=== PATIENT | female | born 1975 | race Two or more races ===

== ENCOUNTER 2016-09-24 13:37 | Outpatient (CLI) | payer SELFPAY ==
[2016-09-24] MEDS ORDERED: LIDOCAINE 1% INJ-PF (10 MG/ML) 30 ML SDV ONE (13:57)
[2016-09-24] MEDS ORDERED: OXYTOCIN/NORMAL SALINE 0 UNIT/0 ML RTUINJ ONE (13:57)
[2016-09-24] MEDS ORDERED: MISOPROSTOL 0.2 MG TABLET ONE (13:57)
[2016-09-24 14:12] LABS: APPEARANCE,URINE SLIGHTLY-CLOUDY; BILIRUBIN,URINE NEGATIVE (NEGATIVE); GLUCOSE, URINE NEGATIVE (NEGATIVE); KETONES,URINE NEGATIVE (NEGATIVE); LEUKOCYTE ESTERASE,URINE NEGATIVE (NEGATIVE); NITRITE,URINE NEGATIVE (NEGATIVE); PROTEIN,URINE NEGATIVE (NEGATIVE); URINE SPECIFIC GRAVITY 1.008; UROBILINOGEN,URINE NEGATIVE mg/dL (<2.0)
[2016-09-24 14:28] LABS: URINE BARBITURATES SCREEN NEGATIVE; URINE METHADONE SCREEN NEGATIVE; URINE OPIATES LOW NEGATIVE; URINE PHENCYCLIDINE SCREEN NEGATIVE
--- NOTE | 2016-09-24 16:54 | Non Stress Test Report ---
Non Stress Test Datetime Report Generated by CPN: 09/24/2016 16:54 DEMOGRAPHIC EGA NST: 35.1 INDICATION Indication for Study: Ordered by Provider Indication for Study (NST) Other: UC's MONITORING Monitor Explained: Monitor Explained; Test Explained; Patient Verbalized Understanding Time on Monitor: 09/24/2016 14:00 Time off Monitor: 09/24/2016 16:40 NST Duration: 160 NST INTERVENTIONS NST Interventions: None BABY A: [id number] BABY A Movement : Present Contraction Frequency : irregular FHR Baseline : 135 Accelerations : 15X15 Decelerations : None Variability : Moderate 6-25bpm NST Review: Meets Criteria for Reactive NST NST Review and Verified By : H. Kaylen, RN NST Results: Reactive NST REPORT Report Trigger: Send Report
--- NOTE | 2016-09-24 21:49 | L&D Discharge Summary ---
OB Discharge Summary Datetime Report Generated by CPN: 09/24/2016 21:49 DISCHARGE DIAGNOSIS Diagnosis/Symptoms: False Labor Number of Babies in Womb: 1 Parity: 3 DIET/ACTIVITY/RESTRICTIONS Diet: Regular Activity: Normal Activity TEACHING/INSTRUCTIONS/REFERRALS Instructions Understood: Patient Verbalized Understanding Referrals: None Educational Materials- Other: care notes given in finnish DISCHARGE INFORMATION Discharged AMA: No Discharged To: Home Discharge Provider Name: Dr Casas Accompanied By: friend Discharge Method: Ambulatory Condition: Stable FOLLOW UP INFORMATION Follow Up With: Health Department Follow Up On: 1-2 Days Follow Up Phone Number: Health Department - Comments: pt refused pain meds.
--- NOTE | 2016-09-28 22:50 | L&D General Admission ---
General Admit Datetime Report Generated by CPN: 09/28/2016 22:45 INFORMATION Patient Age: 40 (09/24/2016 13:38:QS system process) EDC: 10/28/2016 00:00 (09/24/2016 14:17:Radha Acosta RN) LMP: 01/22/2016 00:00 (09/24/2016 14:17:Radha Acosta RN) : 5 (09/24/2016 14:17:Radha Acosta RN) Para: 3 (09/24/2016 14:17:Radha Acosta RN) Term: 2 (09/24/2016 14:17:Radha Acosta RN) : 1 (09/24/2016 14:17:Radha Acosta RN) Spontaneous Abortions: 1 (09/24/2016 14:17:Radha Acosta RN) Induced Abortions: 0 (09/24/2016 14:17:Radha Acosta RN) Livin (09/24/2016 14:17:Radha Acosta RN) Cesareans: 0 (09/24/2016 14:17:Radha cAosta RN) VBACs: 0 (09/24/2016 14:17:Radha Acosta RN) Ectopic: 0 (09/24/2016 14:17:Radha Acosta RN) Multiple Births: 0 (09/24/2016 14:17:Radha Acosta RN) Baby, Number in Womb: 1 (09/24/2016 14:17:Radha Acosta RN) CARE Primary Irrigator: [facility] (09/24/2016 14:17:Radha Acosta RN) Height (in): 60 (09/24/2016 18:48:QS system process) ALLERGIES Medication Allergy: No (09/24/2016 14:17:Radha Acosta RN) Medication Allergies: No Known Allergies (08/07/2015) (09/24/2016 13:38:QS system process) Latex Allergy: No Latex Allergies (09/24/2016 14:17:Radha Acosta RN) COMMUNICATION Primary Language: Japanese (09/24/2016 14:11:Radha Acosta RN) Medical Tx Preferred Language: Japanese; Castilian (09/24/2016 14:11:Radha Acosta RN) DEMOGRAPHICS Address: [address] [place] [id number] (09/24/2016 14:15:QS system process) Address: [address] [place] [id number] (09/24/2016 13:38:QS system process) Zipcode: [address] (09/24/2016 14:15:QS system process) Zipcode: [address] (09/24/2016 13:38:QS system process) Home (09/24/2016 13:38:QS system process) SSN: [id number] (09/24/2016 13:38:QS system process) Next of Kin Name: BRUCE ALTAMIRANO (09/24/2016 13:38:QS system process) Next of Kin (09/24/2016 13:38:QS system process) Next of Kin Relationship: OR (09/24/2016 13:38:QS system process) Date of : 1975 (09/24/2016 13:38:QS system process) Marital Status: Single (09/24/2016 13:38:QS system process) Sex: Female (09/24/2016 13:38:QS system process) Race: Other (09/24/2016 13:38:QS system process) Ethnicity: or (09/24/2016 13:38:QS system process) Temple: Yarsanism (09/24/2016 13:38:QS system process) DRUG AND ALCOHOL USE Alcohol: No (09/24/2016 14:11:Radha Acosta RN) Cigarettes: Never Smoker. [id number] (09/24/2016 14:11:Radha Acosta RN) Marijuana: No (09/24/2016 14:11:Radha Acosta RN) Cocaine: No (09/24/2016 14:11:Radha Acosta RN) Other Illicit Drugs: No (09/24/2016 14:11:Radha Acosta RN) Feeding Preference: Both (09/24/2016 14:11:Radha Acosta RN) Circumcision: No (09/24/2016 14:11:Radha Acosta RN) Classes Attended: No (09/24/2016 14:11:Radha Acosta RN) Pain Management Plans: Natural (09/24/2016 14:11:Radha Acosta RN) Cultural/Spritual Practice: No (09/24/2016 14:11:Radha Acosta RN) Spir/Cult Dietary Needs: No (09/24/2016 14:11:Radha Acosta RN) LABS Blood Type: A Positive (09/24/2016 14:17:Radha Acosta RN) Antibody Screen: negative (09/24/2016 14:17:Radha Acosta RN) Rho(G) this : Not Applicable (09/24/2016 14:17:Radha Acosta RN) Gonorrhea: Negative (09/24/2016 14:17:Radha Acosta RN) Chlamydia: Negative (09/24/2016 14:17:Radha Acosta RN) RPR/VDRL: Nonreactive (09/24/2016 14:17:Radha Acosta RN) HIV Exposure Test: Negative (09/24/2016 14:17:Radha Acosta RN) Rubella: Immune (09/24/2016 14:17:Radha Acosta RN) Varicella: Non Susceptible (09/24/2016 14:17:Radha Acosta RN) OB/PREVIOUS HISTORY LMP: 01/22/2016 00:00 (09/24/2016 14:17:Radha Acosta RN) History of Previous : No (09/24/2016 14:11:Radha Acosta RN) History of Gestational Diabetes: No (09/24/2016 14:11:Radha Acosta RN) History of PIH: No (09/24/2016 14:11:Radha Acosta RN) History of Incompetent Cervix: No (09/24/2016 14:11:Radha Acosta RN) History of Placenta Previa/Abrup: No (09/24/2016 14:11:Radha Acosta RN) History of Macrosomia: No (09/24/2016 14:11:Radha Acosta RN) History of IUGR: No (09/24/2016 14:11:Radha Acosta RN) History of Hemorrhage: No (09/24/2016 14:11:Radha Acosta RN) History of Loss/Stillborn: No (09/24/2016 14:11:Radha Acosta RN) History of : No (09/24/2016 14:11:Radha Acosta RN) History of D (Rh) Sensitization: No (09/24/2016 14:11:Radha Acosta RN) History Recurrent Loss/Stillborn: No (09/24/2016 14:11:Radha Acosta RN) History Depression/PP Depression: No (09/24/2016 14:11:Radha Acosta RN) History of Uterine Anomaly/TONNY: No (09/24/2016 14:11:Radha Acosta RN) History of Infertility: No (09/24/2016 14:11:Radha Acosta RN) History of ART Treatment: No (09/24/2016 14:11:Radha Acosta RN) History of TONNY: No (09/24/2016 14:11:Radha Acosta RN) Comments Obstetrical History: pt had 3 prior deliveries in [facility], records state PTL and PPROM, pt denies when interviewed. (09/24/2016 14:17:Radha Acosta RN) MEDICAL HISTORY Med Hx Diabetes: No (09/24/2016 14:11:Radha Acosta RN) Med Hx Hypertension: No (09/24/2016 14:11:Radha Acosta RN) Med Hx Heart Disease: No (09/24/2016 14:11:Radha Acosta RN) Med Hx Autoimmune Disorder: No (09/24/2016 14:11:Radha Acosta RN) Med Hx Kidney Disease/UTI: No (09/24/2016 14:11:Radha Acosta RN) Med Hx Neurologic/Epilepsy: No (09/24/2016 14:11:Radha Acosta RN) Med Hx Psychiatric Disorders: No (09/24/2016 14:11:Radha Acosta RN) Med Hx Hepatitis/Liver Disease: No (09/24/2016 14:11:Radha Acosta RN) Med Hx Varicosities/Phlebitis: No (09/24/2016 14:11:Radha Acosta RN) Med Hx Thyroid Dysfunction: No (09/24/2016 14:11:Radha Acosta RN) Med Hx Trauma/Violence: No (09/24/2016 14:11:Radha Acosta RN) Med Hx Blood Transfusion: No (09/24/2016 14:11:Radha Acosta RN) Med Hx Pulmonary (Asthma,TB): No (09/24/2016 14:11:Radha Acosta RN) Med Hx Breast: No (09/24/2016 14:11:Radha Acosta RN) Med Hx AUTOMOBILE INSPECTOR Surgery: No (09/24/2016 14:11:Radha Acosta RN) Med Hx Hospitalization/Surgery: Yes (09/24/2016 14:11:Radha Acosta RN) Med Hx Anesthetic Complications: No (09/24/2016 14:11:Radha Acosta RN) Med Hx Abnormal Pap Smear: No (09/24/2016 14:11:Radha Acosta RN) Other Medical Diseases: No (09/24/2016 14:11:Radha Acosta RN) Med Hx Significant Family Hx: No (09/24/2016 14:11:Radha Acosta RN) Details of Med/Surg Hx: pt states that she has no GDM, but records state that she does. Pt had tubal in 1997 and reversal in 2013 (09/24/2016 14:17:Radha Acosta RN) INFECTIOUS HISTORY Inf Hx Gonorrhea: No (09/24/2016 14:11:Radha Acosta RN) Inf Hx Chlamydia: No (09/24/2016 14:11:Radha Acosta RN) Inf Hx Syphilis: No (09/24/2016 14:11:Radha Acosta RN) Inf Hx HIV/AIDS: No (09/24/2016 14:11:Radha Acosta RN) Inf Hx Human Papilloma Virus: No (09/24/2016 14:11:Radha Acosta RN) Inf Hx Pt/Partner Genital Herpes: No (09/24/2016 14:11:Radha Acosta RN) Inf Hx Tuberculosis/Exposure: No (09/24/2016 14:11:Radha Acosta RN) Inf Hx Hepatitis B,C: No (09/24/2016 14:11:Radha Acosta RN) Inf Hx Rash or Viral Illness: No (09/24/2016 14:11:Radha Acosta RN) GENETIC HISTORY Gen Hx Age >=35 at CRISTIAN: No (09/24/2016 14:11:Radha Acosta RN) Gen Hx Thalassemia: No (09/24/2016 14:11:Radha Acosta RN) Gen Hx Congenital Heart Defect: No (09/24/2016 14:11:Radha Acosta RN) Gen Hx Neural Tube Defect: No (09/24/2016 14:11:Radha Acosta RN) Gen Hx Down's Syndrome: No (09/24/2016 14:11:Radha Acosta RN) Gen Hx Sage-Sachs: No (09/24/2016 14:11:Radha Acosta RN) Gen Hx Tahir: No (09/24/2016 14:11:Radha Acosta RN) Gen Hx Familial Dysautonomia: No (09/24/2016 14:11:Radha Acosta RN) Gen Hx Sickle Cell Disease/Trait: No (09/24/2016 14:11:Radha Acosta RN) Gen Hx Hemophilia/Blood Disorder: No (09/24/2016 14:11:Radha Acosta RN) Gen Hx Muscular Dystrophy: No (09/24/2016 14:11:Radha Acosta RN) Gen Hx Cystic Fibrosis: No (09/24/2016 14:11:Radha Acosta RN) Gen Hx Huntingtons Chorea: No (09/24/2016 14:11:Radha Acosta RN) Gen Hx Mental Retardation/Autism: No (09/24/2016 14:11:aRdha Acosta RN) Gen Hx Tested for Fragile X: No (09/24/2016 14:11:Radha Acosta RN) Gen Hx Other Inher/Chromosomal: No (09/24/2016 14:11:Radha Acosta RN) Gen Hx Maternal Metabolic DO: No (09/24/2016 14:11:Radha Acosta RN) Gen Hx Pt Father or FOB Defect: No (09/24/2016 14:11:Radha Acosta RN) Gen Hx Other Genetic History: No (09/24/2016 14:11:Radha Acosta RN) Gen Hx Drugs/Meds since LMP: No (09/24/2016 14:11:Radha Acosta RN)
--- NOTE | 2016-09-28 22:50 | L&D Discharge Summary ---
OB Discharge Summary Datetime Report Generated by CPN: 09/28/2016 22:45 DISCHARGE DIAGNOSIS Diagnosis/Symptoms: False Labor Gestation: 35.1 Number of Babies in Womb: 1 Parity: 3 DIET/ACTIVITY/RESTRICTIONS Diet: Regular Activity: Normal Activity TEACHING/INSTRUCTIONS/REFERRALS Instructions Understood: Patient Verbalized Understanding Referrals: None Educational Materials- Other: care notes given in turkish DISCHARGE INFORMATION Discharged AMA: No Discharged To: Home Discharge Provider Name: Dr Casas Accompanied By: friend Discharge Method: Ambulatory Condition: Stable FOLLOW UP INFORMATION Follow Up With: Health Department Follow Up On: 1-2 Days Follow Up Phone Number: Health Department - Comments: pt refused pain meds.
--- NOTE | 2016-09-28 22:50 | L&D Current Admission ---
Current Admit Datetime Report Generated by CPN: 09/28/2016 22:45 ADMISSION INFORMATION Chief Complaint: Contractions (09/24/2016 14:17:Radha Dave, RN)
--- NOTE | 2016-09-29 04:49 | L&D Discharge Summary ---
OB Discharge Summary Datetime Report Generated by CPN: 09/29/2016 04:46 DISCHARGE DIAGNOSIS Diagnosis/Symptoms: False Labor Gestation: 35.1 Number of Babies in Womb: 1 Parity: 3 DIET/ACTIVITY/RESTRICTIONS Diet: Regular Activity: Normal Activity TEACHING/INSTRUCTIONS/REFERRALS Instructions Understood: Patient Verbalized Understanding Referrals: None Educational Materials- Other: care notes given in mohawk DISCHARGE INFORMATION Discharged AMA: No Discharged To: Home Discharge Provider Name: Dr Casas Accompanied By: friend Discharge Method: Ambulatory Condition: Stable FOLLOW UP INFORMATION Follow Up With: Health Department Follow Up On: 1-2 Days Follow Up Phone Number: Health Department - Comments: pt refused pain meds.
--- NOTE | 2016-09-29 04:49 | L&D Current Admission ---
Current Admit Datetime Report Generated by CPN: 09/29/2016 04:46 ADMISSION INFORMATION Chief Complaint: Contractions (09/24/2016 14:17:Radha Dave, RN)
--- NOTE | 2016-09-29 04:49 | L&D General Admission ---
General Admit Datetime Report Generated by CPN: 09/29/2016 04:46 INFORMATION Patient Age: 40 (09/24/2016 13:38:QS system process) EDC: 10/28/2016 00:00 (09/24/2016 14:17:Radha Acosta RN) LMP: 01/22/2016 00:00 (09/24/2016 14:17:Radha Acosta RN) : 5 (09/24/2016 14:17:Radha Acosta RN) Para: 3 (09/24/2016 14:17:Radha Acosta RN) Term: 2 (09/24/2016 14:17:Radha Acosta RN) : 1 (09/24/2016 14:17:Radha Acosta RN) Spontaneous Abortions: 1 (09/24/2016 14:17:Radha Acosta RN) Induced Abortions: 0 (09/24/2016 14:17:Radha Acosta RN) Livin (09/24/2016 14:17:Radha Acosta RN) Cesareans: 0 (09/24/2016 14:17:Radha Acosta RN) VBACs: 0 (09/24/2016 14:17:Radha Acosta RN) Ectopic: 0 (09/24/2016 14:17:Radha Acosta RN) Multiple Births: 0 (09/24/2016 14:17:Radha Acosta RN) Baby, Number in Womb: 1 (09/24/2016 14:17:Radha Acosta RN) CARE Primary Varnish Blender: [facility] (09/24/2016 14:17:Radha Acosta RN) Height (in): 60 (09/24/2016 18:48:QS system process) ALLERGIES Medication Allergy: No (09/24/2016 14:17:Radha Acosta RN) Medication Allergies: No Known Allergies (08/07/2015) (09/24/2016 13:38:QS system process) Latex Allergy: No Latex Allergies (09/24/2016 14:17:Radha Acosta RN) COMMUNICATION Primary Language: Tristanian (09/24/2016 14:11:Radha Acosta RN) Medical Tx Preferred Language: Tristanian; Castilian (09/24/2016 14:11:Radha Acosta RN) DEMOGRAPHICS Address: [address] [place] [id number] (09/24/2016 14:15:QS system process) Address: [address] [place] [id number] (09/24/2016 13:38:QS system process) Zipcode: [address] (09/24/2016 14:15:QS system process) Zipcode: [address] (09/24/2016 13:38:QS system process) Home (09/24/2016 13:38:QS system process) SSN: [id number] (09/24/2016 13:38:QS system process) Next of Kin Name: BRUCE ALTAMIRANO (09/24/2016 13:38:QS system process) Next of Kin (09/24/2016 13:38:QS system process) Next of Kin Relationship: OR (09/24/2016 13:38:QS system process) Date of : 1975 (09/24/2016 13:38:QS system process) Marital Status: Single (09/24/2016 13:38:QS system process) Sex: Female (09/24/2016 13:38:QS system process) Race: Other (09/24/2016 13:38:QS system process) Ethnicity: or (09/24/2016 13:38:QS system process) Tenriism: Anabaptist (09/24/2016 13:38:QS system process) DRUG AND ALCOHOL USE Alcohol: No (09/24/2016 14:11:Radha Acosta RN) Cigarettes: Never Smoker. [id number] (09/24/2016 14:11:Radha Acosta RN) Marijuana: No (09/24/2016 14:11:Radha Acosta RN) Cocaine: No (09/24/2016 14:11:Radha Acosta RN) Other Illicit Drugs: No (09/24/2016 14:11:Radha Acosta RN) Feeding Preference: Both (09/24/2016 14:11:Radha Acosta RN) Circumcision: No (09/24/2016 14:11:Radha Acosta RN) Classes Attended: No (09/24/2016 14:11:Radha Acosta RN) Pain Management Plans: Natural (09/24/2016 14:11:Radha Acosta RN) Cultural/Spritual Practice: No (09/24/2016 14:11:Radha Acosta RN) Spir/Cult Dietary Needs: No (09/24/2016 14:11:Radha Acosta RN) LABS Blood Type: A Positive (09/24/2016 14:17:Radha Acosta RN) Antibody Screen: negative (09/24/2016 14:17:Radha Acosta RN) Rho(G) this : Not Applicable (09/24/2016 14:17:Radha Acosta RN) Gonorrhea: Negative (09/24/2016 14:17:Radha Acosta RN) Chlamydia: Negative (09/24/2016 14:17:Radha Acosta RN) RPR/VDRL: Nonreactive (09/24/2016 14:17:Radha Acosta RN) HIV Exposure Test: Negative (09/24/2016 14:17:Radha Acosta RN) Rubella: Immune (09/24/2016 14:17:Radha Acosta RN) Varicella: Non Susceptible (09/24/2016 14:17:Radha Acosta RN) OB/PREVIOUS HISTORY LMP: 01/22/2016 00:00 (09/24/2016 14:17:Radha Acosta RN) History of Previous : No (09/24/2016 14:11:Radha Acosta RN) History of Gestational Diabetes: No (09/24/2016 14:11:Radha Acosta RN) History of PIH: No (09/24/2016 14:11:Radha Acosta RN) History of Incompetent Cervix: No (09/24/2016 14:11:Radha Acosta RN) History of Placenta Previa/Abrup: No (09/24/2016 14:11:Radha Acosta RN) History of Macrosomia: No (09/24/2016 14:11:Radha Acosta RN) History of IUGR: No (09/24/2016 14:11:Radha Acosta RN) History of Hemorrhage: No (09/24/2016 14:11:Radha Acosta RN) History of Loss/Stillborn: No (09/24/2016 14:11:Radha Acosta RN) History of : No (09/24/2016 14:11:Radha Acosta RN) History of D (Rh) Sensitization: No (09/24/2016 14:11:Radha Acosta RN) History Recurrent Loss/Stillborn: No (09/24/2016 14:11:Radha Acosta RN) History Depression/PP Depression: No (09/24/2016 14:11:Radha Acosta RN) History of Uterine Anomaly/TONNY: No (09/24/2016 14:11:Radha Acosta RN) History of Infertility: No (09/24/2016 14:11:Radha Acosta RN) History of ART Treatment: No (09/24/2016 14:11:Radha Acosta RN) History of TONNY: No (09/24/2016 14:11:Radha Acosta RN) Comments Obstetrical History: pt had 3 prior deliveries in [facility], records state PTL and PPROM, pt denies when interviewed. (09/24/2016 14:17:Radha Acosta RN) MEDICAL HISTORY Med Hx Diabetes: No (09/24/2016 14:11:Radha Acosta RN) Med Hx Hypertension: No (09/24/2016 14:11:Radha Acosta RN) Med Hx Heart Disease: No (09/24/2016 14:11:Radha Acosta RN) Med Hx Autoimmune Disorder: No (09/24/2016 14:11:Radha Acosta RN) Med Hx Kidney Disease/UTI: No (09/24/2016 14:11:Radha Acosta RN) Med Hx Neurologic/Epilepsy: No (09/24/2016 14:11:Radha Acosta RN) Med Hx Psychiatric Disorders: No (09/24/2016 14:11:Radha Acosta RN) Med Hx Hepatitis/Liver Disease: No (09/24/2016 14:11:Radha cAosta RN) Med Hx Varicosities/Phlebitis: No (09/24/2016 14:11:Radha Acosta RN) Med Hx Thyroid Dysfunction: No (09/24/2016 14:11:Radha Acosta RN) Med Hx Trauma/Violence: No (09/24/2016 14:11:Radha Acosta RN) Med Hx Blood Transfusion: No (09/24/2016 14:11:Radha Acosta RN) Med Hx Pulmonary (Asthma,TB): No (09/24/2016 14:11:Radha Acosta RN) Med Hx Breast: No (09/24/2016 14:11:Radha Acosta RN) Med Hx FARMWORKER 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 Pt had tubal in 1997 and reversal in 2013 (09/24/2016 14:17:Radha Acosta RN) INFECTIOUS HISTORY Inf Hx Gonorrhea: No (09/24/2016 14:11:Radha Acosta RN) Inf Hx Chlamydia: No (09/24/2016 14:11:Radha Acosta RN) Inf Hx Syphilis: No (09/24/2016 14:11:Radha Acosta RN) Inf Hx HIV/AIDS: No (09/24/2016 14:11:Radha Acosta RN) Inf Hx Human Papilloma Virus: No (09/24/2016 14:11:Radha Acosta RN) Inf Hx Pt/Partner Genital Herpes: No (09/24/2016 14:11:Radha Acosta RN) Inf Hx Tuberculosis/Exposure: No (09/24/2016 14:11:Radha Acosta RN) Inf Hx Hepatitis B,C: No (09/24/2016 14:11:Radha Acosta RN) Inf Hx Rash or Viral Illness: No (09/24/2016 14:11:Radha Acosta RN) GENETIC HISTORY Gen Hx Age >=35 at CRISTIAN: No (09/24/2016 14:11:Radha Acosta RN) Gen Hx Thalassemia: No (09/24/2016 14:11:Radha Acosta RN) Gen Hx Congenital Heart Defect: No (09/24/2016 14:11:Radha Acosta RN) Gen Hx Neural Tube Defect: No (09/24/2016 14:11:Radha Acosta RN) Gen Hx Down's Syndrome: No (09/24/2016 14:11:Radha Acosta RN) Gen Hx Sage-Sachs: No (09/24/2016 14:11:Radha Acosta RN) Gen Hx Tahir: No (09/24/2016 14:11:Radha Acosta RN) Gen Hx Familial Dysautonomia: No (09/24/2016 14:11:Radha Acosta RN) Gen Hx Sickle Cell Disease/Trait: No (09/24/2016 14:11:Radha Acosta RN) Gen Hx Hemophilia/Blood Disorder: No (09/24/2016 14:11:Radha Acosta RN) Gen Hx Muscular Dystrophy: No (09/24/2016 14:11:Radha Acosta RN) Gen Hx Cystic Fibrosis: No (09/24/2016 14:11:Radha Acosta RN) Gen Hx Huntingtons Chorea: No (09/24/2016 14:11:Radha Acosta RN) Gen Hx Mental Retardation/Autism: No (09/24/2016 14:11:Radha Acosta RN) Gen Hx Tested for Fragile X: No (09/24/2016 14:11:Radha Acosta RN) Gen Hx Other Inher/Chromosomal: No (09/24/2016 14:11:Radha Acosta RN) Gen Hx Maternal Metabolic DO: No (09/24/2016 14:11:Radha Acosta RN) Gen Hx Pt Father or FOB Defect: No (09/24/2016 14:11:Radha Acosta RN) Gen Hx Other Genetic History: No (09/24/2016 14:11:Radha Acosta RN) Gen Hx Drugs/Meds since LMP: No (09/24/2016 14:11:Radha Acosta RN)
--- NOTE | 2016-09-29 10:50 | L&D Discharge Summary ---
OB Discharge Summary Datetime Report Generated by CPN: 09/29/2016 10:45 DISCHARGE DIAGNOSIS Diagnosis/Symptoms: False Labor Gestation: 35.1 Number of Babies in Womb: 1 Parity: 3 DIET/ACTIVITY/RESTRICTIONS Diet: Regular Activity: Normal Activity TEACHING/INSTRUCTIONS/REFERRALS Instructions Understood: Patient Verbalized Understanding Referrals: None Educational Materials- Other: care notes given in malay DISCHARGE INFORMATION Discharged AMA: No Discharged To: Home Discharge Provider Name: Dr Casas Accompanied By: friend Discharge Method: Ambulatory Condition: Stable FOLLOW UP INFORMATION Follow Up With: Health Department Follow Up On: 1-2 Days Follow Up Phone Number: Health Department - Comments: pt refused pain meds.
--- NOTE | 2016-09-29 10:50 | L&D General Admission ---
General Admit Datetime Report Generated by CPN: 09/29/2016 10:45 INFORMATION Patient Age: 40 (09/24/2016 13:38:QS system process) EDC: 10/28/2016 00:00 (09/24/2016 14:17:Radha Acosta RN) LMP: 01/22/2016 00:00 (09/24/2016 14:17:Radha Acosta RN) : 5 (09/24/2016 14:17:Radha Acosta RN) Para: 3 (09/24/2016 14:17:Radha Acosta RN) Term: 2 (09/24/2016 14:17:Radha Acosta RN) : 1 (09/24/2016 14:17:Radha Acosta RN) Spontaneous Abortions: 1 (09/24/2016 14:17:Radha Acosta RN) Induced Abortions: 0 (09/24/2016 14:17:Radha Acosta RN) Livin (09/24/2016 14:17:Radha Acosta RN) Cesareans: 0 (09/24/2016 14:17:Radha Acosta RN) VBACs: 0 (09/24/2016 14:17:Radha Acosta RN) Ectopic: 0 (09/24/2016 14:17:Radha Acosta RN) Multiple Births: 0 (09/24/2016 14:17:Radha Acosta RN) Baby, Number in Womb: 1 (09/24/2016 14:17:Radha Acosta RN) CARE Primary Commutator Repairer: [facility] (09/24/2016 14:17:Radha Acosta RN) Height (in): 60 (09/24/2016 18:48:QS system process) ALLERGIES Medication Allergy: No (09/24/2016 14:17:Radha Acosta RN) Medication Allergies: No Known Allergies (08/07/2015) (09/24/2016 13:38:QS system process) Latex Allergy: No Latex Allergies (09/24/2016 14:17:Radha Acosta RN) COMMUNICATION Primary Language: Gibraltarian (09/24/2016 14:11:Radha Acosta RN) Medical Tx Preferred Language: Gibraltarian; Castilian (09/24/2016 14:11:Radha Acosta RN) DEMOGRAPHICS Address: [address] [place] [id number] (09/24/2016 14:15:QS system process) Address: [address] [place] [id number] (09/24/2016 13:38:QS system process) Zipcode: [address] (09/24/2016 14:15:QS system process) Zipcode: [address] (09/24/2016 13:38:QS system process) Home (09/24/2016 13:38:QS system process) SSN: [id number] (09/24/2016 13:38:QS system process) Next of Kin Name: BRUCE ALTAMIRANO (09/24/2016 13:38:QS system process) Next of Kin (09/24/2016 13:38:QS system process) Next of Kin Relationship: OR (09/24/2016 13:38:QS system process) Date of : 1975 (09/24/2016 13:38:QS system process) Marital Status: Single (09/24/2016 13:38:QS system process) Sex: Female (09/24/2016 13:38:QS system process) Race: Other (09/24/2016 13:38:QS system process) Ethnicity: or (09/24/2016 13:38:QS system process) Mandaen: Advent (09/24/2016 13:38:QS system process) DRUG AND ALCOHOL USE Alcohol: No (09/24/2016 14:11:Radha Acosta RN) Cigarettes: Never Smoker. [id number] (09/24/2016 14:11:Radha Acosta RN) Marijuana: No (09/24/2016 14:11:Radha Acosta RN) Cocaine: No (09/24/2016 14:11:Radha Acosta RN) Other Illicit Drugs: No (09/24/2016 14:11:Radha Acosta RN) Feeding Preference: Both (09/24/2016 14:11:Radha Acosta RN) Circumcision: No (09/24/2016 14:11:Radha Acosta RN) Classes Attended: No (09/24/2016 14:11:Radha Acosta RN) Pain Management Plans: Natural (09/24/2016 14:11:Radha Acosta RN) Cultural/Spritual Practice: No (09/24/2016 14:11:Radha Acosta RN) Spir/Cult Dietary Needs: No (09/24/2016 14:11:Radha Acosta RN) LABS Blood Type: A Positive (09/24/2016 14:17:Radha Acosta RN) Antibody Screen: negative (09/24/2016 14:17:Radha Acosta RN) Rho(G) this : Not Applicable (09/24/2016 14:17:Radha Acosta RN) Gonorrhea: Negative (09/24/2016 14:17:Radha Acosta RN) Chlamydia: Negative (09/24/2016 14:17:Radha Acosta RN) RPR/VDRL: Nonreactive (09/24/2016 14:17:Radha Acosta RN) HIV Exposure Test: Negative (09/24/2016 14:17:Radha Acosta RN) Rubella: Immune (09/24/2016 14:17:Radha Acosta RN) Varicella: Non Susceptible (09/24/2016 14:17:Radha Acosta RN) OB/PREVIOUS HISTORY LMP: 01/22/2016 00:00 (09/24/2016 14:17:Radha Acosta RN) History of Previous : No (09/24/2016 14:11:Radha Acosta RN) History of Gestational Diabetes: No (09/24/2016 14:11:Radha Acosta RN) History of PIH: No (09/24/2016 14:11:Radha Acosta RN) History of Incompetent Cervix: No (09/24/2016 14:11:Radha Acosta RN) History of Placenta Previa/Abrup: No (09/24/2016 14:11:Radha Acosta RN) History of Macrosomia: No (09/24/2016 14:11:Radha Acosta RN) History of IUGR: No (09/24/2016 14:11:Radha Acosta RN) History of Hemorrhage: No (09/24/2016 14:11:Radha Acosta RN) History of Loss/Stillborn: No (09/24/2016 14:11:Radha Acosta RN) History of : No (09/24/2016 14:11:Radha Acosta RN) History of D (Rh) Sensitization: No (09/24/2016 14:11:Radha Acosta RN) History Recurrent Loss/Stillborn: No (09/24/2016 14:11:Radha Acosta RN) History Depression/PP Depression: No (09/24/2016 14:11:Radha Acosta RN) History of Uterine Anomaly/TONNY: No (09/24/2016 14:11:Radha Acosta RN) History of Infertility: No (09/24/2016 14:11:Radha Acosta RN) History of ART Treatment: No (09/24/2016 14:11:Radha Acosta RN) History of TONNY: No (09/24/2016 14:11:Radha Acosta RN) Comments Obstetrical History: pt had 3 prior deliveries in [facility], records state PTL and PPROM, pt denies when interviewed. (09/24/2016 14:17:Radha Acosta RN) MEDICAL HISTORY Med Hx Diabetes: No (09/24/2016 14:11:Radha Acosta RN) Med Hx Hypertension: No (09/24/2016 14:11:Radha Acosta RN) Med Hx Heart Disease: No (09/24/2016 14:11:Radha Acosta RN) Med Hx Autoimmune Disorder: No (09/24/2016 14:11:Radha Acosta RN) Med Hx Kidney Disease/UTI: No (09/24/2016 14:11:Radha Acosta RN) Med Hx Neurologic/Epilepsy: No (09/24/2016 14:11:Radha Acosta RN) Med Hx Psychiatric Disorders: No (09/24/2016 14:11:Radha Acosta RN) Med Hx Hepatitis/Liver Disease: No (09/24/2016 14:11:Radha Acosta RN) Med Hx Varicosities/Phlebitis: No (09/24/2016 14:11:Radha Acosta RN) Med Hx Thyroid Dysfunction: No (09/24/2016 14:11:Radha Acosta RN) Med Hx Trauma/Violence: No (09/24/2016 14:11:Radha Acosta RN) Med Hx Blood Transfusion: No (09/24/2016 14:11:Radha Acosta RN) Med Hx Pulmonary (Asthma,TB): No (09/24/2016 14:11:Radha Acosta RN) Med Hx Breast: No (09/24/2016 14:11:Radha Acosta RN) Med Hx LABOR RELATIONS DIRECTOR Surgery: No (09/24/2016 14:11:Radha Acosta RN) Med Hx Hospitalization/Surgery: Yes (09/24/2016 14:11:Radha Acosta RN) Med Hx Anesthetic Complications: No (09/24/2016 14:11:Radha Acosta RN) Med Hx Abnormal Pap Smear: No (09/24/2016 14:11:Radha Acosta RN) Other Medical Diseases: No (09/24/2016 14:11:Radha Acosta RN) Med Hx Significant Family Hx: No (09/24/2016 14:11:Radha Acosta RN) Details of Med/Surg Hx: pt states that she has no GDM, but records state that she does. Pt had tubal in 1997 and reversal in 2013 (09/24/2016 14:17:Radha Acosta RN) INFECTIOUS HISTORY Inf Hx Gonorrhea: No (09/24/2016 14:11:Radha Acosta RN) Inf Hx Chlamydia: No (09/24/2016 14:11:Radha Acosta RN) Inf Hx Syphilis: No (09/24/2016 14:11:Radha Acosta RN) Inf Hx HIV/AIDS: No (09/24/2016 14:11:Radha Acosta RN) Inf Hx Human Papilloma Virus: No (09/24/2016 14:11:Radha Acosta RN) Inf Hx Pt/Partner Genital Herpes: No (09/24/2016 14:11:Radha Acosta RN) Inf Hx Tuberculosis/Exposure: No (09/24/2016 14:11:Radha Acosta RN) Inf Hx Hepatitis B,C: No (09/24/2016 14:11:Radha Acosta RN) Inf Hx Rash or Viral Illness: No (09/24/2016 14:11:Radha Acosta RN) GENETIC HISTORY Gen Hx Age >=35 at CRISTIAN: No (09/24/2016 14:11:Radha Acosta RN) Gen Hx Thalassemia: No (09/24/2016 14:11:Radha Acosta RN) Gen Hx Congenital Heart Defect: No (09/24/2016 14:11:Radha Acosta RN) Gen Hx Neural Tube Defect: No (09/24/2016 14:11:Radha Acosta RN) Gen Hx Down's Syndrome: No (09/24/2016 14:11:Radha Acosta RN) Gen Hx Sage-Sachs: No (09/24/2016 14:11:Radha Acosta RN) Gen Hx Tahir: No (09/24/2016 14:11:Radha Acosta RN) Gen Hx Familial Dysautonomia: No (09/24/2016 14:11:Radha Acosta RN) Gen Hx Sickle Cell Disease/Trait: No (09/24/2016 14:11:Radha Acosta RN) Gen Hx Hemophilia/Blood Disorder: No (09/24/2016 14:11:Radha Acosta RN) Gen Hx Muscular Dystrophy: No (09/24/2016 14:11:Radha Acosta RN) Gen Hx Cystic Fibrosis: No (09/24/2016 14:11:Radha Acosta RN) Gen Hx Huntingtons Chorea: No (09/24/2016 14:11:Radha Acosta RN) Gen Hx Mental Retardation/Autism: No (09/24/2016 14:11:Radha Acosta RN) Gen Hx Tested for Fragile X: No (09/24/2016 14:11:Radha Acosta RN) Gen Hx Other Inher/Chromosomal: No (09/24/2016 14:11:Radha Acosta RN) Gen Hx Maternal Metabolic DO: No (09/24/2016 14:11:Radha Acosta RN) Gen Hx Pt Father or FOB Defect: No (09/24/2016 14:11:Radha Acosta RN) Gen Hx Other Genetic History: No (09/24/2016 14:11:Radha Acosta RN) Gen Hx Drugs/Meds since LMP: No (09/24/2016 14:11:Radha Acosta RN)
--- NOTE | 2016-09-29 10:50 | L&D Current Admission ---
Current Admit Datetime Report Generated by CPN: 09/29/2016 10:45 ADMISSION INFORMATION Chief Complaint: Contractions (09/24/2016 14:17:Radha Dave, RN)
== END 2016-09-24 17:02 | disposition home or self-care (01) ==
LOC: LC 13:37
PROVIDERS: ATTEND Student in an Organized Health Care Education/Training Program
PROC: 4A1HXCZ Monitoring of Products of Conception, Cardiac Rate, External Approach (ICD-10-PCS; principal; 2016-09-24)
DX: O47.03 False labor before 37 completed weeks of gestation, third trimester (principal); O09.523 Supervision of elderly multigravida, third trimester; Z3A.35 35 weeks gestation of pregnancy
CPT/HCPCS: 59025; 80307; 81005; 87210; J2590; J3490

== ENCOUNTER 2016-10-14 11:03 | Outpatient (CLI) | payer SELFPAY ==
[2016-10-14 11:58] LABS: APPEARANCE,URINE SLIGHTLY-CLOUDY; BILIRUBIN,URINE NEGATIVE (NEGATIVE); GLUCOSE, URINE NEGATIVE (NEGATIVE); KETONES,URINE NEGATIVE (NEGATIVE); LEUKOCYTE ESTERASE,URINE NEGATIVE (NEGATIVE); NITRITE,URINE NEGATIVE (NEGATIVE); PROTEIN,URINE 30 mg/dL (NEGATIVE); URINE SPECIFIC GRAVITY 1.018; UROBILINOGEN,URINE NEGATIVE mg/dL (<2.0)
[2016-10-14 12:43] LABS: URINE BARBITURATES SCREEN NEGATIVE; URINE METHADONE SCREEN NEGATIVE; URINE OPIATES LOW NEGATIVE; URINE PHENCYCLIDINE SCREEN NEGATIVE
[2016-10-14 15:03] LABS: ABSOLUTE LYMPHOCYTES (AUTO) 1.5 10^3/uL (0.5-4.7); EOSINOPHILS % (AUTO) 0.3 % (0-6); MEAN CORPUSCULAR VOLUME 90 fl (80-97)
[2016-10-14 15:08] LABS: ABSOLUTE MONOCYTES (AUTO) 0.8 10^3/uL (0.1-1.4); ABSOLUTE NEUT (AUTO) 4.2 10^3/uL (1.7-8.2); BASOPHILS % (AUTO) 0.1 % (0-2); HEMATOCRIT 39.1 % (36.0-47.0); HEMOGLOBIN 13.6 g/dL (12.0-15.5); HGB HCT DIFFERENCE 1.7; LYMPHOCYTES % (AUTO) 23.4 % (13-45); MEAN CORPUSCULAR HEMOGLOBIN 31.2 pg (27.0-33.4); MEAN CORPUSCULAR HGB CONC 34.9 g/dL (32.0-36.0); MONOCYTES % (AUTO) 11.6 % (3-13); RED BLOOD COUNT 4.37 10^6/uL (3.72-5.28); SEGMENTED NEUTROPHILS % (AUTO) 64.6 % (42-78); WHITE BLOOD COUNT 6.5 10^3/uL (4.0-10.5)
[2016-10-14 15:46] LABS: CHLAM PCR NOT DETECTED (NOT DETECT)
== END 2016-10-14 17:07 | disposition home or self-care (01) ==
LOC: LC 11:03
PROVIDERS: ATTEND Obstetrics & Gynecology
PROC: 4A1HXCZ Monitoring of Products of Conception, Cardiac Rate, External Approach (ICD-10-PCS; principal; 2016-10-14)
DX: O47.1 False labor at or after 37 completed weeks of gestation (principal); O09.523 Supervision of elderly multigravida, third trimester; Z3A.38 38 weeks gestation of pregnancy
CPT/HCPCS: 36415; 59025; 76815; 80307; 81005; 82962; 83036; 85025; 87081; 87491; 87591

== ENCOUNTER 2016-10-18 20:40 | Outpatient (CLI) | payer SELFPAY ==
[2016-10-18 21:22] LABS: APPEARANCE,URINE SLIGHTLY-CLOUDY; BILIRUBIN,URINE NEGATIVE (NEGATIVE); GLUCOSE, URINE NEGATIVE (NEGATIVE); KETONES,URINE NEGATIVE (NEGATIVE); LEUKOCYTE ESTERASE,URINE SMALL (NEGATIVE); NITRITE,URINE NEGATIVE (NEGATIVE); PROTEIN,URINE NEGATIVE (NEGATIVE); URINE SPECIFIC GRAVITY 1.008; UROBILINOGEN,URINE NEGATIVE mg/dL (<2.0)
[2016-10-18 21:44] LABS: URINE BARBITURATES SCREEN NEGATIVE; URINE METHADONE SCREEN NEGATIVE; URINE OPIATES LOW NEGATIVE; URINE PHENCYCLIDINE SCREEN NEGATIVE
[2016-10-18] MEDS ORDERED: HYDROXYZINE PAMOATE 50 MG CAPSULE ONE (21:48)
[2016-10-18] MEDS ORDERED: HYDROXYZINE PAMOATE 50 MG CAPSULE PO ONE (21:54)
== END 2016-10-18 21:58 | disposition home or self-care (01) ==
LOC: LC 20:40
PROVIDERS: ATTEND Obstetrics & Gynecology
DX: Z34.83 Encounter for supervision of other normal pregnancy, third trimester (principal)
CPT/HCPCS: 59025; 80307; 81005

== ENCOUNTER 2016-12-22 00:43 | Day surgery (SDC) | payer MEDICAID ==
[2016-12-22 01:30] LABS: ABSOLUTE EOSINOPHILS # (AUTO) 0.1 10^3/uL (0.0-0.6); ABSOLUTE LYMPHOCYTES (AUTO) 1.5 10^3/uL (0.5-4.7); ABSOLUTE MONOCYTES (AUTO) 0.7 10^3/uL (0.1-1.4); ABSOLUTE NEUT (AUTO) 6.7 10^3/uL (1.7-8.2); BASOPHILS % (AUTO) 0.2 % (0-2); HEMATOCRIT 40.7 % (36.0-47.0); HEMOGLOBIN 13.9 g/dL (12.0-15.5); LYMPHOCYTES % (AUTO) 16.8 % (13-45); MEAN CORPUSCULAR HGB CONC 34.2 g/dL (32.0-36.0); MEAN CORPUSCULAR VOLUME 88 fl (80-97); MONOCYTES % (AUTO) 7.5 % (3-13); RED BLOOD COUNT 4.65 10^6/uL (3.72-5.28); RED CELL DISTRIBUTION WIDTH 13.5 % (11.5-14.0); SEGMENTED NEUTROPHILS % (AUTO) 74.5 % (42-78); WHITE BLOOD COUNT 8.9 10^3/uL (4.0-10.5)
[2016-12-22 01:48] LABS: ALANINE AMINOTRANSFERASE 32 U/L (9-52); ALBUMIN 4.7 g/dL (3.5-5.0); ALKALINE PHOSPHATASE 100 U/L (38-126); ANION GAP 15 (5-19); ASPARTATE AMINO TRANSFERASE 22 U/L (14-36); BILIRUBIN,DIRECT 0.2 mg/dL (0.0-0.4); BILIRUBIN,TOTAL 0.5 mg/dL (0.2-1.3); BLOOD UREA NITROGEN 19 mg/dL (7-20); CARBON DIOXIDE 25 mmol/L (22-30); CHLORIDE 103 mmol/L (98-107); CREATININE RESULT 0.78 mg/dL (0.52-1.25); GLUCOSE 117 mg/dL (75-110); LIPASE 218.9 U/L (23-300); POTASSIUM 4.3 mmol/L (3.6-5.0); SODIUM 142.8 mmol/L (137-145); TOTAL PROTEIN 8.4 g/dL (6.3-8.2)
[2016-12-22 01:48] LABS: APPEARANCE,URINE CLOUDY; BILIRUBIN,URINE NEGATIVE (NEGATIVE); GLUCOSE, URINE NEGATIVE (NEGATIVE); KETONES,URINE TRACE mg/dL (NEGATIVE); LEUKOCYTE ESTERASE,URINE MODERATE (NEGATIVE); NITRITE,URINE NEGATIVE (NEGATIVE); PROTEIN,URINE 30 mg/dL (NEGATIVE); URINE SPECIFIC GRAVITY 1.034; UROBILINOGEN,URINE NEGATIVE mg/dL (<2.0)
--- NOTE | 2016-12-22 05:56 | ER Document Report ---
ED GI/ <KIMGISELL - Last Filed: 12/22/16 10:12> - General Mode of Arrival: Ambulatory Information source: Patient TRAVEL OUTSIDE OF THE [place] IN LAST 30 DAYS: No - HPI Patient complains to provider of: Abdominal pain Onset: Yesterday Timing/Duration: Intermittent Quality of pain: Sharp Severity at maximum: Severe Severity in ED: Moderate Pain Level: 3 Location: RUQ Vaginal bleeding (Compared to normal period): None Exacerbated by: Other - Pain started after patient ate spicy shrimp Relieved by: Denies Similar symptoms previously: No Recently seen / treated by doctor: No <SHMUEL ORTIZ - Last Filed: 12/23/16 08:01> - General Chief Complaint: Abdominal Pain Stated Complaint: ABDOMINAL PAIN Time Seen by Provider: 12/22/16 04:18 Notes: 21-year-old female presents to ED for abdominal pain upper abdominal pain since 1700. She denies any nausea or vomiting. (SHMUEL ORTIZ) - Related Data Allergies/Adverse Reactions: No Known Allergies Allergy (Verified 10/14/16 13:16) Past Medical History - General Information source: Patient - Social History Smoking Status: Unknown if Ever Smoked Cigarette use (# per day): No Chew tobacco use (# tins/day): No Smoking Education Provided: No Frequency of alcohol use: None Drug Abuse: None Lives with: Family Family History: CAD Patient has suicidal ideation: No Patient has homicidal ideation: No - Past Medical History Cardiac Medical History: Reports: None Pulmonary Medical History: Reports: None EENT Medical History: Reports: None Neurological Medical History: Reports: None Endocrine Medical History: Reports: None Renal/ Medical History: Reports: None Malignancy Medical History: Reports: None GI Medical History: Reports: None Musculoskeltal Medical History: Reports None Skin Medical History: Reports None Psychiatric Medical History: Reports: None Traumatic Medical History: Reports: None Infectious Medical History: Reports: None Surgical Hx: Negative Past Surgical History: Reports: None <SHMUEL ORTIZ - Last Filed: 12/23/16 08:01> Review of Systems - Review of Systems Constitutional: No symptoms reported EENT: No symptoms reported Cardiovascular: No symptoms reported Respiratory: No symptoms reported Gastrointestinal: Abdominal pain Genitourinary: No symptoms reported Female Genitourinary: No symptoms reported Musculoskeletal: No symptoms reported Skin: No symptoms reported Hematologic/Lymphatic: No symptoms reported Neurological/Psychological: No symptoms reported -: Yes All other systems reviewed and negative <SHMUEL ORTIZ - Last Filed: 12/23/16 08:01> Physical Exam - Vital signs Interpretation: Normal - General General appearance: Appears well, Alert - HEENT Head: Normocephalic, Atraumatic Eyes: Normal Pupils: PERRL - Respiratory Respiratory status: No respiratory distress Chest status: Nontender Breath sounds: Normal Chest palpation: Normal - Cardiovascular Rhythm: Regular Heart sounds: Normal auscultation Murmur: No - Abdominal Inspection: Normal Distension: No distension Bowel sounds: Normal Tenderness: Tender - ruq Organomegaly: No organomegaly - Back Back: Normal, Nontender - Extremities General upper extremity: Normal inspection, Nontender, Normal color, Normal ROM , Normal temperature General lower extremity: Normal inspection, Nontender, Normal color, Normal ROM , Normal temperature, Normal weight bearing. No: Alis's sign - Neurological Neuro grossly intact: Yes Cognition: Normal Orientation: AAOx4 Efrem Coma Scale Eye Opening: Spontaneous Efrem Coma Scale Verbal: Oriented Efrme Coma Scale Motor: Obeys Commands Efrem Coma Scale Total: 15 Speech: Normal Motor strength normal: LUE, RUE, LLE, RLE Sensory: Normal - Psychological Associated symptoms: Normal affect, Normal mood - Skin Skin Temperature: Warm Skin Moisture: Dry Skin Color: Normal <SHMUEL ORTIZ - Last Filed: 12/23/16 08:01> - Vital signs Vitals: Temp Pulse Resp BP Pulse Ox 98 F 74 20 126/81 H 98 12/22/16 00:52 12/22/16 00:52 12/22/16 00:52 12/22/16 00:52 12/22/16 00:52 Course - Laboratory Result Diagrams: 12/22/16 01:10 12/22/16 01:10 <GISELL ALVAREZ - Last Filed: 12/22/16 10:12> - Laboratory Result Diagrams: 12/22/16 01:10 12/22/16 01:10 - Diagnostic Test Radiology reviewed: Image reviewed, Reports reviewed - Consults Suhr Time consulted: 07:17 Consulted provider: will come to ER <SHMUEL ORTIZ - Last Filed: 12/23/16 08:01> - Re-evaluation Re-evalutation: 12/22/16 10:12 surgeon, Dr. Neil, taking pt to OR. (GISELL ALVAREZ) 12/22/16 07:14 Report given to Gisell KIRK. Dr. Lubin has been consulted to come and examined the patient. Patient has right upper quadrant tenderness with a positive ultrasound for cholecystitis with gallbladder stones but labs are negative. (SHMUEL ORTIZ) - Vital Signs Vital signs: Temp Pulse Resp BP Pulse Ox 97.5 F 69 16 138/73 H 98 12/22/16 09:05 12/22/16 09:05 12/22/16 09:05 12/22/16 09:05 12/22/16 09:05 - Laboratory Laboratory results interpreted by me: 12/22/16 12/22/16 01:10 01:15 Glucose 117 H Total Protein 8.4 H Urine Protein 30 H Urine Ketones TRACE H Ur Leukocyte Esterase MODERATE H Urine Ascorbic Acid 40 H - Consults Jolynn Reason for consultation: 12/22/16 07:17 Cholecystitis with right upper quadrant abdominal pain. Patient also has gallstones. (SHMUEL ORTIZ) Discharge - Discharge Admitting Provider: Surgicalist Unit Admitted: OR <GISELL ALVAREZ - Last Filed: 12/22/16 10:12> <SHMUEL ORTIZ - Last Filed: 12/23/16 08:01> - Discharge Condition: Stable Disposition: ADMITTED INPATIENT
--- NOTE | 2016-12-22 06:29 | RADIOLOGY REPORT (SQ) ---
EXAM DESCRIPTION: U/S ABDOMEN LIMITED W/O DOP COMPLETED DATE/TIME: 12/22/2016 6:09 am REASON FOR STUDY: ruq abdominal pain COMPARISON: None. TECHNIQUE: Dynamic and static grayscale images acquired of the abdomen and recorded on PACS. Additio nal selected color Doppler and spectral images recorded. LIMITATIONS: None. FINDINGS: PANCREAS: No masses. Visualized pancreatic duct normal caliber. LIVER: No masses. Echotexture normal. LIVER VASCULATURE: Normal directional flow of the main portal vein and hepatic veins. GALLBLADDER: Small gallstones. Minimal pericholecystic fluid. ULTRASOUND-DETECTED NIELSON'S SIGN: Positive. INTRAHEPATIC DUCTS AND COMMON DUCT: 0.6 cm diameter CBD and intrahepatic ducts normal caliber. No idalia ling defects. INFERIOR VENA CAVA: Normal flow. AORTA: No aneurysm. RIGHT KIDNEY: Normal size. Normal echogenicity. No solid or suspicious masses. No hydronephrosis. No calcifications. PERITONEAL AND RIGHT PLEURAL SPACE: No ascites or effusions. OTHER: No other significant findings. IMPRESSION: Cholecystitis pattern. Laboratory correlation recommended. TECHNICAL DOCUMENTATION: JOB ID: [id number] [email or web address]- All Rights Reserved
[2016-12-22] MEDS ORDERED: RINGERS SOLUTION,LACTATED 1,000 ML IV PRN ×2 (07:51→12:33)
[2016-12-22] MEDS ORDERED: MORPHINE SULFATE 10 MG/ML INJ IV ONE (07:53)
[2016-12-22] MEDS ORDERED: AMPICILLIN SOD/SULBACTAM 3 GM VIAL IV ONE (07:57)
--- NOTE | 2016-12-22 07:58 | PDOC H&P ---
History of Present Illness Patient complains of: Abdominal pain History of Present Illness: TULIO SANTOS is a 41 year old female In usual state of good health until several days ago when she began to experience right upper quadrant abdominal pain radiating to her back. The pain dramatically worsened yesterday. Patient denies any fever she has had some nausea and vomiting. She denies any prior history of this sort of pain. She denies any history of jaundice. She is healthy otherwise. She is couple of months after vaginal delivery. She is breast-feeding. History obtained Via customer relationship specialist. Past Medical History Cardiac Medical History: Reports: None Pulmonary Medical History: Reports: None EENT Medical History: Reports: None Neurological Medical History: Reports: None Endocrine Medical History: Reports: None Renal/ Medical History: Reports: None Malignancy Medical History: Reports: None GI Medical History: Reports: None Musculoskeltal Medical History: Reports: None Skin Medical History: Reports: None Psychiatric Medical History: Reports: None Traumatic Medical History: Reports: None Infectious Medical History: Reports: None Past Surgical History Past Surgical History: Reports: None Social History Lives with: Family Smoking Status: Never Smoker Frequency of Alcohol Use: None Family History Family History: CAD Parental Family History Reviewed: No Children Family History Reviewed: No Sibling(s) Family History Reviewed.: No Medication/Allergy Home Medications: No Home Medications 10/14/16 Allergies/Adverse Reactions: No Known Allergies Allergy (Verified 10/14/16 13:16) Physical Exam Vital Signs: Temp Pulse Resp BP Pulse Ox 98 F 74 20 126/81 H 98 12/22/16 00:52 12/22/16 00:52 12/22/16 00:52 12/22/16 00:52 12/22/16 00:52 Intake & Output 12/21/16 12/22/16 12/23/16 06:59 06:59 06:59 Weight 85.2 kg General appearance: PRESENT: no acute distress, cooperative Eye exam: PRESENT: conjunctiva pink Neck exam: PRESENT: other - Palpable and nontender with no palpable masses Respiratory exam: PRESENT: clear to auscultation reed Cardiovascular exam: PRESENT: RRR GI/Abdominal exam: PRESENT: other - Soft, nondistended, focal tenderness to palpation in the right upper quadrant with positive Hammond sign Extremities exam: PRESENT: other - No swelling Neurological exam: PRESENT: alert, awake, oriented to situation Psychiatric exam: PRESENT: appropriate affect Results Laboratory Results: 12/22/16 01:10 12/22/16 01:10 12/22/16 12/22/16 12/22/16 01:10 01:10 01:15 WBC 8.9 RBC 4.65 Hgb 13.9 Hct 40.7 MCV 88 MCH 30.0 MCHC 34.2 RDW 13.5 Plt Count 232 Seg Neutrophils % 74.5 Lymphocytes % 16.8 Monocytes % 7.5 Eosinophils % 1.0 Basophils % 0.2 Absolute Neutrophils 6.7 Absolute Lymphocytes 1.5 Absolute Monocytes 0.7 Absolute Eosinophils 0.1 Absolute Basophils 0.0 Sodium 142.8 Potassium 4.3 Chloride 103 Carbon Dioxide 25 Anion Gap 15 BUN 19 Creatinine 0.78 Est GFR ( Amer) > 60 Est GFR (Non-Af Amer) > 60 Glucose 117 H Calcium 10.0 Total Bilirubin 0.5 AST 22 ALT 32 Alkaline Phosphatase 100 Total Protein 8.4 H Albumin 4.7 Lipase 218.9 Urine Color RUPINDER Urine Appearance CLOUDY Urine pH 5.0 Ur Specific [place] 1.034 Urine Protein 30 H Urine Glucose (UA) NEGATIVE Urine Ketones TRACE H Urine Blood NEGATIVE Urine Nitrite NEGATIVE Ur Leukocyte Esterase MODERATE H Urine WBC (Auto) 16 Urine RBC (Auto) 1 Impressions: Abdomen Ultrasound 12/22/16 04:28 IMPRESSION: Cholecystitis pattern. Laboratory correlation recommended. Assessment & Plan - Diagnosis (1) Acute cholecystitis due to biliary calculus Is this a current diagnosis for this admission?: YesPlan: Plan laparoscopic cholecystectomy possible open cystectomy. I have discussed with the patient the risk and benefits of the procedure, including risk of infection, bleeding, bile back and intestinal injury. Patient also understands that I may need to make a big incision. Patient understands and agrees to proceed.
[2016-12-22] MEDS ORDERED: BUPIVACAINE HCL 0.25 % INJ/PF (2.5 MG/1 ML) 30 ML VIAL ONE (07:59)
[2016-12-22] MEDS ORDERED: AMPICILLIN SODIUM/SULBACTAM NA 3 GM in NORMAL SALINE 100 ML IV ONE (09:00)
[2016-12-22] MEDS ORDERED: FENTANYL CITRATE INJ/PF 250 MCG/5 ML AMPULE ONE (10:53)
[2016-12-22] MEDS ORDERED: MORPHINE SULFATE 10 MG/ML INJ ONE (10:54)
[2016-12-22] MEDS ORDERED: MIDAZOLAM 2 MG/2 ML INJ ONE (10:54)
[2016-12-22] MEDS ORDERED: PROPOFOL INJ 200 MG/20 ML VIAL IV ONE (10:54)
[2016-12-22] MEDS ORDERED: PROMETHAZINE HCL INJ 25 MG/1 ML VIAL IV PRN (11:33)
[2016-12-22] MEDS ORDERED: DIPHENHYDRAMINE HCL 50 MG/ML VIAL IV PRN (11:33)
[2016-12-22] MEDS ORDERED: MORPHINE SULFATE 10 MG/ML INJ IV PRN ×2 (11:33→12:31)
[2016-12-22] MEDS ORDERED: ONDANSETRON HCL INJ/PF 4 MG/2 ML SDV IV PRN ×3 (11:33→16:44)
[2016-12-22] MEDS ORDERED: FENTANYL CITRATE INJ/PF 100 MCG/2 ML AMPUL IV PRN ×3 (11:33)
[2016-12-22] MEDS ORDERED: MEPERIDINE HCL/PF INJ 25 MG/1 ML DISP.SYRIN IV PRN (11:33)
--- NOTE | 2016-12-22 12:30 | Operative Report ---
Operative Report DATE OF SURGERY: 12/22/16 PREOPERATIVE DIAGNOSIS: Acute cholecystitis POSTOPERATIVE DIAGNOSIS: Acute cholecystitis OPERATION: Laparoscopic cholecystectomy SURGEON: BOSSMAN BECERRA ANESTHESIA: GA TISSUE REMOVED OR ALTERED: gallbladder COMPLICATIONS: None ESTIMATED BLOOD LOSS: Minimal INTRAOPERATIVE FINDINGS: Edematous gallbladder wall. PROCEDURE: Informed consent was obtained. Patient was brought to the operating room and placed in the operating table in supine position. After satisfactory induction of general anesthesia, patient's abdomen was prepped and draped in usual sterile fashion. A infraumbilical midline incision was made and dissection carried down through the fascia and the peritoneal cavity entered without difficulty. Keller trocar was inserted and pneumoperitoneum produced with good patient toleration. 5 mm trocar was placed in the subxiphoid location entering the peritoneal cavity to the right-hand side of the falciform ligament. Two 5 mm trochars were placed in the right subcostal location. The gallbladder appeared distended and the wall appeared edematous. The gallbladder was grasped and retracted cephalad over the dome of the liver. Infundibulum of the gallbladder was grasped and retracted laterally and inferiorly thus exposing calot's triangle. The cystic duct gallbladder junction was clearly identified the cystic duct was clipped and divided. The lymphatics of calot's node was clipped and divided. Cystic artery was then clipped and divided. The gallbladder was removed from the gallbladder bed using the hook electrocautery technique. Hemostasis appeared excellent. The gallbladder was removed intact via the Keller trocar site fascial defect using an endobag. The operative field was irrigated and irrigant aspirated out. Irrigation fluid was perfectly clear at the end of the case. All trochars were removed under the direct vision of the laparoscope to ensure hemostasis. The Keller trocar site fascial defect was closed with interrupted Vicryl sutures. All skin incisions were closed with subcuticular interrupted Monocryl suture. Marcaine was injected at the port sites. Patient tolerated procedure well with no apparent complications and was taken to the recovery area in stable condition.
[2016-12-22] MEDS ORDERED: MEPERIDINE HCL/PF INJ 25 MG/1 ML DISP.SYRIN ONE (12:52)
[2016-12-22] MEDS: FENTANYL CITRATE INJ/PF 100 MCG/2 ML AMPUL ONE ×2 (12:55→13:05)
[2016-12-22] MEDS ORDERED: SUCCINYLCHOLINE CHLORIDE INJ 200 MG/10 ML VIAL ONE (13:19)
[2016-12-22] MEDS ORDERED: DEXAMETHASONE SOD PHOSPHATE INJ 4 MG/1 ML VIAL ONE (13:19)
[2016-12-22] MEDS ORDERED: KETOROLAC TROMETHAMINE 60 MG/2 ML SDV ONE (13:19)
[2016-12-22] MEDS ORDERED: GLYCOPYRROLATE INJ 0.4 MG/2 ML VIAL ONE (13:19)
[2016-12-22] MEDS ORDERED: NEOSTIGMINE METHYLSULFATE 10 MG/10 ML VIAL ONE (13:19)
[2016-12-22] MEDS ORDERED: ONDANSETRON HCL INJ/PF 4 MG/2 ML SDV ONE (13:19)
[2016-12-22] MEDS ORDERED: LIDOCAINE 2% INJ-PF (20 MG/ML) 10 ML AMPUL ONE (13:19)
[2016-12-22] MEDS: MORPHINE SULFATE 10 MG/ML INJ ONE ×2 (13:28→13:45)
[2016-12-22] MEDS: MORPHINE SULFATE 10 MG/ML INJ IV PRN ×2 (16:00→22:28)
--- NOTE | 2016-12-22 17:30 | PDOC PROGRESS REPORT ---
Subjective Progress Note for:: 12/22/16 Subjective:: Feels better. Physical Exam Vital Signs: Temp Pulse Resp BP Pulse Ox 97.2 F 65 18 135/85 H 95 12/22/16 14:08 12/22/16 14:08 12/22/16 14:08 12/22/16 14:08 12/22/16 14:08 Intake & Output 12/21/16 12/22/16 12/23/16 06:59 06:59 06:59 Intake Total 1700 Output Total 770 Balance 930 Weight 85.2 kg General appearance: PRESENT: no acute distress, cooperative Respiratory exam: PRESENT: clear to auscultation reed Cardiovascular exam: PRESENT: RRR GI/Abdominal exam: PRESENT: other - Soft, nondistended, very mild tenderness. Much improved from preoperative state. Extremities exam: PRESENT: other - No swelling and no tenderness. Results Laboratory Results: 12/22/16 01:10 12/22/16 01:10 12/22/16 12/22/16 12/22/16 01:10 01:10 01:10 WBC 8.9 RBC 4.65 Hgb 13.9 Hct 40.7 MCV 88 MCH 30.0 MCHC 34.2 RDW 13.5 Plt Count 232 Seg Neutrophils % 74.5 Lymphocytes % 16.8 Monocytes % 7.5 Eosinophils % 1.0 Basophils % 0.2 Absolute Neutrophils 6.7 Absolute Lymphocytes 1.5 Absolute Monocytes 0.7 Absolute Eosinophils 0.1 Absolute Basophils 0.0 Sodium 142.8 Potassium 4.3 Chloride 103 Carbon Dioxide 25 Anion Gap 15 BUN 19 Creatinine 0.78 Est GFR ( Amer) > 60 Est GFR (Non-Af Amer) > 60 Glucose 117 H Calcium 10.0 Total Bilirubin 0.5 AST 22 ALT 32 Alkaline Phosphatase 100 Total Protein 8.4 H Albumin 4.7 Lipase 218.9 Serum HCG, Qual NEGATIVE Urine Color Urine Appearance Urine pH Ur Specific [place] Urine Protein Urine Glucose (UA) Urine Ketones Urine Blood Urine Nitrite Ur Leukocyte Esterase Urine WBC (Auto) Urine RBC (Auto) 12/22/16 01:15 WBC RBC Hgb Hct MCV MCH MCHC RDW Plt Count Seg Neutrophils % Lymphocytes % Monocytes % Eosinophils % Basophils % Absolute Neutrophils Absolute Lymphocytes Absolute Monocytes Absolute Eosinophils Absolute Basophils Sodium Potassium Chloride Carbon Dioxide Anion Gap BUN Creatinine Est GFR ( Amer) Est GFR (Non-Af Amer) Glucose Calcium Total Bilirubin AST ALT Alkaline Phosphatase Total Protein Albumin Lipase Serum HCG, Qual Urine Color RUPINDER Urine Appearance CLOUDY Urine pH 5.0 Ur Specific [place] 1.034 Urine Protein 30 H Urine Glucose (UA) NEGATIVE Urine Ketones TRACE H Urine Blood NEGATIVE Urine Nitrite NEGATIVE Ur Leukocyte Esterase MODERATE H Urine WBC (Auto) 16 Urine RBC (Auto) 1 Impressions: Abdomen Ultrasound 12/22/16 04:28 IMPRESSION: Cholecystitis pattern. Laboratory correlation recommended. Assessment & Plan - Diagnosis (1) Acute cholecystitis due to biliary calculus Is this a current diagnosis for this admission?: YesPlan: Status post laparoscopic cholecystectomy. Patient doing very well. Will likely discharge patient home tomorrow.
[2016-12-23] MEDS: MORPHINE SULFATE 10 MG/ML INJ IV PRN (05:51)
[2016-12-23] MEDS ORDERED: HYDROCODONE/ACETAMINOPHEN 5-325 MG TABLET PO PRN ×2 (09:29)
[2016-12-23 17:14] VITALS: BP 130/72
--- NOTE | 2016-12-23 22:59 | DISCHARGE SUMMARY E ---
Discharge Summary NAME: TULIO SANTOS : 1975 AGE: 41Y ADMITTED: 12/22/2016 DISCHARGED: 12/23/2016 REASON FOR ADMISSION: Acute abdominal pain. HISTORY OF PRESENT ILLNESS: Patient is a 41-year-old female who presents with a several day history of right upper quadrant abdominal pain radiating to her back. The pain worsened and therefore she came into the emergency room to be evaluated. She had an abdominal ultrasound which revealed cholelithiasis with cholecystitis. PHYSICAL EXAMINATION: She was consistent with acute cholecystitis. PRINCIPAL DIAGNOSIS: Acute cholecystitis. PROCEDURE: The patient underwent a laparoscopic cholecystectomy on 12/22/2016. HOSPITAL COURSE: The patient was admitted to the hospital and placed n.p.o. along with IV antibiotics being started. She then was taken to surgery to undergo a laparoscopic cholecystectomy for acute cholecystitis. She tolerated the procedure well and was then transferred to the floor in stable condition. She was watched overnight and placed on IV antibiotics. The next day she was started on a liquid diet for which she tolerated. She was also switched to oral medication which help relieve her pain. She denied any nausea or vomiting. Her abdominal incisions remained clean without any evidence of infection. She was ambulating without problems. She was then discharged on postoperative day 1 in stable condition. DISCHARGE PLAN: The patient will be discharged home. Followup in Surgery Clinic in 2 weeks. Advance diet to regular as tolerated. Ambulate with no heavy lifting over 15 pounds for 2 weeks. Would not recommend driving while taking oral pain medication. May shower in a.m. after removing band-aid. DISCHARGE MEDICATIONS: Concepcion 5/325 one to two p.o. q.4-6 hours p.r.n. pain. SURGERY: The patient underwent a laparoscopic cholecystectomy on 12/22/2016. DICTATING PHYSICIAN: HENOK BOGGS M.D. [id number] PHY#: [id number] ID: [id number] JOB#: [id number] ACCT: [id number] cc:[facility], M.D, SHMUEL CLEMENS M.D.
== END 2016-12-23 17:50 | disposition other institution (70) ==
LOC: ER 00:43 → OMH.OR.ALL 00:43 → EDSTATUS 09:46 → 2N 15:07 → OMH.OR.ALL 12-23 17:50
PROVIDERS: ATTEND Nurse Practitioner Family
PROC: 0FT44ZZ Resection of Gallbladder, Percutaneous Endoscopic Approach (ICD-10-PCS; principal; 2016-12-22 10:00)
DX: K80.10 Calculus of gallbladder with chronic cholecystitis without obstruction (principal)
CPT/HCPCS: 36415; 87040; 83690; 84703; 85025; 80053; 81001; 88304 ×2; 76705; 47562; J2250; J1100; J1885; J3010 ×2; J0295; J2270 ×2; J0330; J3490 ×2; J2405; J2704; 790; 99285; J2175